=== PATIENT | female | born 1950 | race Caucasian/White ===

== ENCOUNTER 2017-06-17 19:43 | Emergency (ER) | payer MEDICARE, OTHER ==
[2017-06-17 19:52] VITALS: BP 175/86
--- NOTE | 2017-06-17 21:07 | EDM.PDOC ---
ED HPI GENERAL MEDICAL PROBLEM - General Chief Complaint: Chest Pain Stated Complaint: CHEST PAIN/COUGH/BODY ACHES/HEADACHES Time Seen by Provider: 06/17/17 19:49 Source of Information: Reports: Patient, RN Notes Reviewed - History of Present Illness INITIAL COMMENTS - FREE TEXT/NARRATIVE: 66-year-old lady started with cough congestion sore throat about 2-1/2 days ago. That has been worsening yesterday, today and especially this evening. Her cough is harsh frequent from her chest and nonproductive. Does have nasal congestion and drainage which is clear. Her throat is sore. She now does have fever chills headache muscle aching. Her became ill with these symptoms about 6 days ago was seen in the ED about 3 or 4 days ago. Of note His influenza screen was negative. Chest Pain Score (Numeric/FACES): 5 - Related Data Allergies Allergy/AdvReac Type Severity Reaction Status Date / Time adhesive Allergy Rash Verified 08/18/15 14:42 bandaids Allergy Rash Uncoded 08/18/15 14:42 Home Meds: Home Meds Furosemide [Lasix] 40 mg PO DAILY 06/06/14 [History] Quinapril [Accupril] 20 mg PO DAILY 06/06/14 [History] Ranitidine HCl [Ranitidine] 150 mg PO BID 06/06/14 [History] Venlafaxine HCl [Venlafaxine ER] 37.5 mg PO BID 06/06/14 [History] atorvaSTATin [Lipitor] 40 mg PO BEDTIME 06/06/14 [History] Aspirin [Lan Chewable Aspirin] 81 mg PO BEDTIME 12/30/14 [History] Levothyroxine [Synthroid] 100 mcg PO DAILY 12/30/14 [History] Potassium Gluconate 2.5 meq PO BID 12/30/14 [History] DULoxetine [Cymbalta] 60 mg PO DAILY cap 01/04/15 [Rx] Past Medical History HEENT History: Reports: Cataract, Impaired Vision Other HEENT History: wears eyeglasses Cardiovascular History: Reports: High Cholesterol, Hypertension, [place], Stents Gastrointestinal History: Reports: GERD Other Genitourinary History: only 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: Psychiatric History: Reports: Anxiety, Depression Endocrine/Metabolic History: Reports: Other (See Below) Other Endocrine/Metabolic History: has thyroid "burned." - Infectious Disease History Infectious Disease History: Reports: Chicken Pox, Measles, Mumps - Past Surgical History GI Surgical History: Reports: Appendectomy, Cholecystectomy Musculoskeletal Surgical History: Reports: Knee Replacement Social & Family History - Family History Family Medical History: Noncontributory - Tobacco Use Smoking Status *Q: Never Smoker Years of Tobacco use: 12 Used Tobacco, but Quit: Yes Month Tobacco Last Used: 15 yrs ago Second Hand Smoke Exposure: No - Caffeine Use Caffeine Use: Reports: Coffee - Alcohol Use Days Per Week of Alcohol Use: 0 - Recreational Drug Use Recreational Drug Use: No Drug Use in Last 12 Months: No ED ROS GENERAL - Review of Systems Review Of Systems: See Below Constitutional: Reports: Fever, Chills HEENT: Reports: Rhinitis, Sinus Problem, Throat Pain Respiratory: Reports: Shortness of Breath (With coughing), Cough Cardiovascular: Reports: Chest Pain Endocrine: Reports: Fatigue (With coughing) GI/Abdominal: Reports: Decreased Appetite. Denies: Abdominal Pain, Nausea, Vomiting Skin: Reports: No Symptoms Neurological: Reports: Dizziness, Headache, Weakness (Generalized). Denies: Numbness, Tingling, Trouble Speaking, Difficulty Walking ED EXAM, GENERAL - Physical Exam Exam: See Below General Appearance: Alert, Mild Distress Eye Exam: Bilateral Eye: PERRL Throat/Mouth: Normal Inspection, Normal Oropharynx Head: Atraumatic. No: Facial Swelling Neck: Supple, Full Range of Motion. No: Lymphadenopathy (L), Lymphadenopathy (R ) Respiratory/Chest: No Respiratory Distress, Lungs Clear, Normal Breath Sounds. No: Rhonchi, Wheezing Cardiovascular: Regular Rate, Rhythm GI/Abdominal: Non-Tender Back Exam: Normal Inspection Extremities: Normal Inspection, Normal Range of Motion. No: Pedal Edema, Leg Pain Neurological: Alert, Oriented, No Motor/Sensory Deficits Skin Exam: Warm, Dry, Normal Color Course - Vital Signs Last Recorded V/S: Last Vital Signs Temp 98 F 06/17/17 19:48 Pulse 97 06/17/17 19:48 Resp 23 H 06/17/17 19:48 BP 175/86 H 06/17/17 19:48 Pulse Ox 96 06/17/17 19:48 - Orders/Labs/Meds Orders: Active Orders 24 hr Category Date Time Status Chest 1V Frontal [CR] Stat Exams 06/17/17 19:59 Taken Departure - Departure Time of Disposition: 21:04 Disposition: Home, Self-Care 01 Condition: Fair Clinical Impression: Influenza A Instructions: Influenza, Adult, [id number] Referrals: Estevan Rizzo MD [Primary Care Provider] - Forms: ED Department Discharge Additional Instructions: Screen did come back positive for influenza A. Rest, continue to drink plenty of water to maintain hydration. The vporizer or steam as needed. Tylenol 3-4 times daily as needed for discomfort or high fever. Symptoms should start getting better over the next 1-2 days as discussed the cough, bronchitis will likely last for another week or 2. Follow up clinic as needed, return to ED as needed if symptoms worsening in any way. - My Orders Last 24 Hours: My Active Orders 06/17/17 19:59 Chest 1V Frontal [CR] Stat - Assessment/Plan Last 24 Hours: My Active Orders 06/17/17 19:59 Chest 1V Frontal [CR] Stat
--- NOTE | 2017-06-18 06:36 | CR ---
Chest: Portable view of the chest was obtained. Comparison: Prior chest x-ray of 08/18/15 Heart size and mediastinum are normal. Lungs are clear. Bony structures are grossly intact. Impression: 1. Nothing acute is identified on portable chest x-ray. Diagnostic code #1
== END 2017-06-17 21:17 | disposition home or self-care (01) ==
LOC: JD.ED 19:43
DX: J10.1 Influenza due to other identified influenza virus with other respiratory manifestations (principal); I10 Essential (primary) hypertension; E78.00 Pure hypercholesterolemia, unspecified; F32.9 Major depressive disorder, single episode, unspecified; Z87.891 Personal history of nicotine dependence; Z91.09 Other allergy status, other than to drugs and biological substances; Z79.899 Other long term (current) drug therapy; Z79.82 Long term (current) use of aspirin
CPT/HCPCS: 71045; 71045-26; 87804; 99282; 99284

== ENCOUNTER 2019-12-22 19:43 | Emergency (ER) | payer MEDICARE, OTHER ==
[2019-12-22 20:00] VITALS: BP 176/72; PULSE 81
[2019-12-22] MEDS ORDERED: Sodium Chloride 0.9% 10 ML Syringe FLUSH PRN (20:14)
[2019-12-22] MEDS ORDERED: Aspirin 81 MG Tab.Chew PO ONE (20:15)
--- NOTE | 2019-12-22 20:20 | EDM.PDOC ---
ED HPI GENERAL MEDICAL PROBLEM - General Chief Complaint: Chest Pain Stated Complaint: CHEST PAIN Time Seen by Provider: 12/22/19 20:02 Source of Information: Reports: Patient, RN Notes Reviewed - History of Present Illness INITIAL COMMENTS - FREE TEXT/NARRATIVE: 69 yr old female with chest pain yesterday and today. It is sharp, does not radiate but also not going away. She does have hx of CAD with 5 stents. No cough, fever or chills. She does get short of breath at times but no worse than usual. Her chest does not feel heavy or tight like it did with her previous CO about 20 yrs ago. No abd pain, nausea or vomiting. Left Upper Chest Pain Score (Numeric/FACES): 6 - Related Data Allergies Allergy/AdvReac Type Severity Reaction Status Date / Time adhesive Allergy Rash Verified 12/22/19 20:00 bandaids Allergy Rash Uncoded 08/18/15 14:42 Home Meds: Home Meds Furosemide [Lasix] 40 mg PO DAILY 06/06/14 [History] Quinapril [Accupril] 20 mg PO DAILY 06/06/14 [History] Venlafaxine HCl [Venlafaxine ER] 37.5 mg PO TID 06/06/14 [History] atorvaSTATin [Lipitor] 40 mg PO BEDTIME 06/06/14 [History] Aspirin [Lan Chewable Aspirin] 81 mg PO BEDTIME 12/30/14 [History] Levothyroxine [Synthroid] 100 mcg PO DAILY 12/30/14 [History] Potassium Gluconate 2.5 meq PO BID 12/30/14 [History] Past Medical History HEENT History: Reports: Cataract, Impaired Vision Other HEENT History: wears eyeglasses Cardiovascular History: Reports: High Cholesterol, Hypertension, [place], Stents Gastrointestinal History: Reports: GERD Other Genitourinary History: 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: Psychiatric History: Reports: Anxiety, Depression Endocrine/Metabolic History: Reports: Other (See Below) Other Endocrine/Metabolic History: has thyroid "burned." - Infectious Disease History Infectious Disease History: Reports: Chicken Pox, Measles, Mumps - Past Surgical History GI Surgical History: Reports: Appendectomy, Cholecystectomy Musculoskeletal Surgical History: Reports: Knee Replacement Social & Family History - Family History Family Medical History: Noncontributory - Tobacco Use Smoking Status *Q: Former Smoker Used Tobacco, but Quit: Yes Month/Year Tobacco Last Used: 2002 - Caffeine Use Caffeine Use: Reports: Coffee - Recreational Drug Use Recreational Drug Use: No ED ROS GENERAL - Review of Systems Review Of Systems: See Below Constitutional: Denies: Fever, Chills, Diaphoresis HEENT: Denies: Sinus Problem, Throat Pain Respiratory: Reports: Shortness of Breath. Denies: Cough Cardiovascular: Reports: Chest Pain GI/Abdominal: Denies: Abdominal Pain, Nausea, Vomiting Musculoskeletal: Denies: Shoulder Pain, Arm Pain, Back Pain Skin: Reports: No Symptoms Neurological: Reports: No Symptoms ED EXAM, GENERAL - Physical Exam Exam: See Below General Appearance: Alert, No Apparent Distress Eye Exam: Bilateral Eye: PERRL Throat/Mouth: Normal Inspection Head: Atraumatic Neck: Supple Respiratory/Chest: No Respiratory Distress, Lungs Clear, Normal Breath Sounds, Other (very mild tenderness L sternal border) Cardiovascular: Regular Rate, Rhythm GI/Abdominal: Soft, Non-Tender. No: Guarding Extremities: Normal Inspection. No: Pedal Edema, Leg Pain, Increased Warmth, Redness Neurological: Alert, Oriented, No Motor/Sensory Deficits Skin Exam: Warm, Dry, Normal Color, No Rash EKG INTERPRETATION EKG Date: 12/22/19 Rhythm: NSR Hinkle: Normal P-Wave: Present QRS: Other (q waves inf. and ant. leads) ST-T: Depressed (very slight st depression V5 and V6) Course - Vital Signs Last Recorded V/S: Last Vital Signs Temp 97.6 F 12/22/19 19:54 Pulse 81 12/22/19 19:54 Resp 22 H 12/22/19 19:54 BP 176/72 H 12/22/19 19:54 Pulse Ox 98 12/22/19 19:54 - Orders/Labs/Meds Orders: Active Orders 24 hr Category Date Time Status Peripheral IV Insertion Adult [OM.PC] Stat Oth 12/22/19 20:15 Ordered Labs: Laboratory Tests 12/22/19 12/22/19 Range/Units 19:55 19:55 WBC 10.84 H (3.98-10.04) K/mm3 RBC 4.50 (3.98-5.22) M/mm3 Hgb 13.9 (11.2-15.7) gm/dl Hct 43.3 (34.1-44.9) % MCV 96.2 H D (79.4-94.8) fl MCH 30.9 (25.6-32.2) pg MCHC 32.1 L (32.2-35.5) g/dl RDW Std Deviation 48.6 H (36.4-46.3) fL Plt Count 259 (182-369) K/mm3 MPV 10.9 (9.4-12.3) fl Neut % (Auto) 57.2 (34.0-71.1) % Lymph % (Auto) 35.0 (19.3-51.7) % [place] % (Auto) 7.2 (4.7-12.5) % Eos % (Auto) 0.1 L (0.7-5.8) Baso % (Auto) 0.3 (0.1-1.2) % Neut # (Auto) 6.21 H (1.56-6.13) K/mm3 Lymph # (Auto) 3.79 H (1.18-3.74) K/mm3 [place] # (Auto) 0.78 H (0.24-0.36) K/mm3 Eos # (Auto) 0.01 L (0.04-0.36) K/mm3 Baso # (Auto) 0.03 (0.01-0.08) K/mm3 Manual Slide Review Normal smear Sodium 141 (136-145) mEq/L Potassium 3.7 (3.5-5.1) mEq/L Chloride 103 (98-107) mEq/L Carbon Dioxide 29 (21-32) mEq/L Anion Gap 12.7 (5-15) BUN 16 (7-18) mg/dL Creatinine 1.4 H (0.55-1.02) mg/dL Est Cr Clr Drug Dosing 34.81 mL/min Estimated GFR (MDRD) 37 (>60) mL/min BUN/Creatinine Ratio 11.4 L (14-18) Glucose 91 (80-115) mg/dL Calcium 8.9 (8.5-10.1) mg/dL Total Bilirubin 0.4 (0.2-1.0) mg/dL AST 16 (15-37) U/L ALT 31 (14-59) U/L Alkaline Phosphatase 106 (46-116) U/L Troponin I < 0.017 (0.00-0.056) ng/mL Total Protein 7.8 (6.4-8.2) g/dl Albumin 3.5 (3.4-5.0) g/dl Globulin 4.3 gm/dL Albumin/Globulin Ratio 0.8 L (1-2) Meds: Medications Discontinued Medications Generic Name Dose Route Start Last Admin Trade Name Jose PRN Reason Stop Dose Admin Aspirin 324 mg 12/22/19 20:15 12/22/19 20:24 Aspirin PO 12/22/19 20:16 324 mg ONETIME ONE Administration Sodium Chloride 10 ml 12/22/19 20:14 12/22/19 20:17 Saline Flush FLUSH 10 ml ASDIRECTED PRN Administration Keep Vein Open - Re-Assessments/Exams Free Text/Narrative Re-Assessment/Exam: 12/22/19 21:58 trop neg., CXR no acute findings. She has been doing some heavier lifting than usual this past week. I did offer a repeat trop but they are comfortable with what we have done. Discharge instr. as documented. Departure - Departure Time of Disposition: 21:16 Disposition: Home, Self-Care 01 Condition: Fair Clinical Impression: Atypical chest pain Instructions: Nonspecific Chest Pain, Adult Referrals: Estevan Rizzo MD [Primary Care Provider] - Forms: ED Department Discharge Additional Instructions: rest, avoid heavy lifting the remainder of this week. Alternate ice and heat as needed. Tylenol q 6 to 8 hr as needed. Continue current meds. Return to ED as needed if symptoms worsening in any way. Sepsis Event Note (ED) - Evaluation Sepsis Screening Result: No Definite Risk - Focused Exam Vital Signs: Vital Signs Temp Pulse Resp BP Pulse Ox 12/22/19 19:54 97.6 F 81 22 H 176/72 H 98 - My Orders Last 24 Hours: My Active Orders 12/22/19 20:15 Peripheral IV Insertion Adult [OM.PC] Stat - Assessment/Plan Last 24 Hours: My Active Orders 12/22/19 20:15 Peripheral IV Insertion Adult [OM.PC] Stat
--- NOTE | 2019-12-22 21:06 | CR ---
Chest: Portable view of the chest was obtained. Comparison: Prior chest x-ray of 06/17/17. Heart size and mediastinum are within normal limits for portable technique. Lungs show no acute parenchymal change. Bony structures are grossly intact. Impression: 1. Nothing acute is identified on portable chest x-ray. Diagnostic code #1 This report was dictated in MDT
== END 2019-12-22 21:22 | disposition home or self-care (01) ==
LOC: JD.ED 19:43
DX: R07.89 Other chest pain (principal); I25.2 Old myocardial infarction; I10 Essential (primary) hypertension; E78.00 Pure hypercholesterolemia, unspecified; Z95.5 Presence of coronary angioplasty implant and graft; F41.9 Anxiety disorder, unspecified; F32.9 Major depressive disorder, single episode, unspecified; Z90.49 Acquired absence of other specified parts of digestive tract; Z98.890 Other specified postprocedural states; Z87.891 Personal history of nicotine dependence; Z91.09 Other allergy status, other than to drugs and biological substances; Z79.899 Other long term (current) drug therapy; Z79.82 Long term (current) use of aspirin
CPT/HCPCS: 36415; 71045; 80053; 84484; 85025; 93005; 99285; A9270; 93010; 99283

== ENCOUNTER 2023-03-01 18:42 | Emergency (ER) | payer MEDICARE, OTHER ==
[2023-03-01] MEDS ORDERED: Acetaminophen/HYDROcodone 325-5 MG Tab PO ONE (22:43)
[2023-03-01 23:50] VITALS: BP 154/74; PULSE 59
== END 2023-03-01 23:45 | disposition home or self-care (01) ==
LOC: JD.ED 18:42
DX: S92.211A Displaced fracture of cuboid bone of right foot, initial encounter for closed fracture (principal); E78.00 Pure hypercholesterolemia, unspecified; K21.9 Gastro-esophageal reflux disease without esophagitis; I10 Essential (primary) hypertension; I25.2 Old myocardial infarction; Z79.82 Long term (current) use of aspirin; Z79.899 Other long term (current) drug therapy; Z91.048 Other nonmedicinal substance allergy status; W17.89XA Other fall from one level to another, initial encounter
CPT/HCPCS: 70450; 72125; 72128; 73610; 73630; 99284; A9270; 99283

== ENCOUNTER 2024-12-15 22:37 | Inpatient (IN) | payer MEDICARE, OTHER ==
[2024-12-15 23:09] LABS: MEAN PLATELET VOLUME 10.4 fl (9.4-12.3); NRBC ABSOLUTE 0.00 (0.00-0.02); NRBC PERCENT 0.0 % (0.0-0.2); PLATELET COUNT,PLT 143 K/mm3 (150-400); RED BLOOD CELL COUNT 3.93 M/mm3 (4.10-5.30); WHITE BLOOD CELL COUNT,WBC 6.42 K/mm3 (3.9-11.3)
[2024-12-15 23:34] LABS: INR 1.03
[2024-12-15 23:41] LABS: LACTIC ACID 1.4 mmol/L (0.4-2.0)
[2024-12-15] MEDS: Sodium Chloride 0.9% 10 ML Syringe FLUSH PRN (23:44)
[2024-12-15] MEDS: Lactated Ringers 1,000 ML IV SCH (23:44)
[2024-12-15 23:49] LABS: A/G RATIO 0.6 (1-2); ALANINE AMINOTRANSFERASE,ALT 27 U/L (14-59); ASPARTATE AMNIOTRANSFERASE,AST 31 U/L (15-37); BILIRUBIN TOTAL 1.1 mg/dL (0.2-1.0); BLOOD UREA NITROGEN,BUN 16 mg/dL (7-18); CARBON DIOXIDE,CO2 30 mEq/L (21-32); CHLORIDE,CL 97 mEq/L (98-107); CREATININE 1.8 mg/dL (0.55-1.02); ESTIMATED GFR 29 mL/min (>60); GLUCOSE RANDOM 137 mg/dL (70-99); POTASSIUM,K 4.2 mEq/L (3.5-5.1); PROTEIN TOTAL,TP 7.5 g/dl (6.4-8.2); SODIUM,NA 134 mEq/L (136-145); TROPONIN I HIGH SENSITIVITY 14 pg/mL (<=51)
[2024-12-15 23:54] LABS: BAND PERCENT MAN 1 % (0-10); BASOPHILS PERCENT MAN 0 (0.1-1.2); EOSINOPHILS PERCENT MAN 0 % (0.7-5.8); LYMPHOCYTES % ATYPICAL MANUAL 0 %; LYMPHOCYTES PERCENT MAN 16 % (20-40); MONOCYTES PERCENT MAN 3 % (2-10)
[2024-12-15 23:55] LABS: PLATELET COUNT ESTIMATE ADEQUATE
[2024-12-16 02:40] LABS: APPEARANCE,URINE CLEAR (Clear); GLUCOSE,URINE NEGATIVE (Negative); OCCULT BLOOD,URINE 1+ (Negative)
[2024-12-16 02:50] LABS: EPITHELIAL CELLS,URINE 0-5 /hpf (0-5)
[2024-12-16] MEDS ORDERED: Ondansetron 4 MG/2 ML SDV IVPUSH PRN (04:22)
[2024-12-16] MEDS ORDERED: Acetaminophen/HYDROcodone 325-5 MG Tab PO PRN (08:30)
[2024-12-16 08:31] LABS: BASOPHILS ABSOLUTE AUTO 0.0 K/mm3 (0.0-0.2); BASOPHILS PERCENT AUTO 0.6 % (0.0-1.0); EOSINOPHILS ABSOLUTE AUTO 0.0 K/mm3 (0.0-0.4); EOSINOPHILS PERCENT AUTO 0.0 % (0.0-6.0); IMMATURE GRAN ABSOLUTE AUTO 0.01 K/mm3 (0.00-0.05); IMMATURE GRAN PERCENT AUTO 0.2 % (0.0-0.4); LYMPHOCYTES ABSOLUTE AUTO 1.7 K/mm3 (1.0-4.8); LYMPHOCYTES PERCENT AUTO 31.8 % (24.0-44.0); MEAN PLATELET VOLUME 10.4 fl (9.4-12.3); MONOCYTES ABSOLUTE AUTO 0.5 K/mm3 (0.0-0.8); MONOCYTES PERCENT AUTO 9.5 % (0.0-8.0); NEUTROPHILS ABSOLUTE AUTO 3.1 K/mm3 (1.8-7.7); NEUTROPHILS PERCENT AUTO 57.9 % (41.0-71.0); NRBC ABSOLUTE 0.00 (0.00-0.02); NRBC PERCENT 0.0 % (0.0-0.2); PLATELET COUNT,PLT 127 K/mm3 (150-400); RED BLOOD CELL COUNT 3.56 M/mm3 (4.10-5.30); WHITE BLOOD CELL COUNT,WBC 5.35 K/mm3 (3.9-11.3)
[2024-12-16 08:55] LABS: BLOOD UREA NITROGEN,BUN 14.0 mg/dL (7-18); CARBON DIOXIDE,CO2 29.0 mEq/L (21-32); CHLORIDE,CL 100.0 mEq/L (98-107); CREATININE 1.6 mg/dL (0.55-1.02); EST CRCL DRUG DOSING (CG) 27.76 mL/min; ESTIMATED GFR 34.0 mL/min (>60); GLUCOSE RANDOM 145.0 mg/dL (70-99); POTASSIUM,K 3.5 mEq/L (3.5-5.1); SODIUM,NA 136.0 mEq/L (136-145)
[2024-12-16] MEDS: Heparin Sodium 5,000 Units/ML Vial SUBCUT SCH (08:55)
[2024-12-16 09:13] LABS: PHOSPHORUS 2.8 mg/dL (2.6-4.7)
[2024-12-16 09:44] LABS: TSH 0.962 uIU/mL (0.358-3.74); VITAMIN D,25-HYDROXY 19.1 ng/ml (30.0-100.0)
[2024-12-16] MEDS: Magnesium Sulfat/D5W 1GM/100ML 1 GM in Premix Bag 1 BAG IV ONE (10:59)
[2024-12-16] MEDS ORDERED: Potassium Phosphates 30 MMOLE in Sodium Chloride 0.9% 500 ML IV ONE (11:00)
[2024-12-16 11:14] LABS: APPEARANCE,URINE CLEAR (Clear); GLUCOSE,URINE NEGATIVE (Negative); OCCULT BLOOD,URINE TRACE-INTACT (Negative)
[2024-12-16 11:25] LABS: EPITHELIAL CELLS,URINE 0-5 /hpf (0-5)
[2024-12-16] MEDS: Potassium Phosphates 30 MMOLE in Sodium Chloride 0.9% 500 ML IV ONE (16:14)
[2024-12-16] MEDS: Cholecalciferol (Vitamin D3) 5,000 UNIT Cap PO SCH (16:17)
[2024-12-16] MEDS ORDERED: Sennosides/Docusate Sodium 50-8.6 MG Tab PO PRN (21:00)
[2024-12-16] MEDS ORDERED: Naloxone 0.4 MG/ML SDV IVPUSH PRN (21:10)
[2024-12-17 04:56] LABS: BLOOD UREA NITROGEN,BUN 15.0 mg/dL (7-18); CARBON DIOXIDE,CO2 28.0 mEq/L (21-32); CHLORIDE,CL 106.0 mEq/L (98-107); CREATININE 1.3 mg/dL (0.55-1.02); EST CRCL DRUG DOSING (CG) 34.16 mL/min; ESTIMATED GFR 43.0 mL/min (>60); GLUCOSE RANDOM 172.0 mg/dL (70-99); PHOSPHORUS 3.0 mg/dL (2.6-4.7); POTASSIUM,K 4.4 mEq/L (3.5-5.1); SODIUM,NA 140.0 mEq/L (136-145)
[2024-12-17] MEDS: DESVENLAFAXINE SUCCINATE PO SCH (17:42)
[2024-12-19 05:51] LABS: BASOPHILS ABSOLUTE AUTO 0.0 K/mm3 (0.0-0.2); BASOPHILS PERCENT AUTO 0.1 % (0.0-1.0); EOSINOPHILS ABSOLUTE AUTO 0.0 K/mm3 (0.0-0.4); EOSINOPHILS PERCENT AUTO 0.0 % (0.0-6.0); IMMATURE GRAN ABSOLUTE AUTO 0.08 K/mm3 (0.00-0.05); IMMATURE GRAN PERCENT AUTO 0.9 % (0.0-0.4); LYMPHOCYTES ABSOLUTE AUTO 1.4 K/mm3 (1.0-4.8); LYMPHOCYTES PERCENT AUTO 15.9 % (24.0-44.0); MEAN PLATELET VOLUME 11.4 fl (9.4-12.3); MONOCYTES ABSOLUTE AUTO 0.3 K/mm3 (0.0-0.8); MONOCYTES PERCENT AUTO 3.3 % (0.0-8.0); NEUTROPHILS ABSOLUTE AUTO 7.1 K/mm3 (1.8-7.7); NEUTROPHILS PERCENT AUTO 79.8 % (41.0-71.0); NRBC ABSOLUTE 0.00 (0.00-0.02); NRBC PERCENT 0.0 % (0.0-0.2); PLATELET COUNT,PLT 190 K/mm3 (150-400); RED BLOOD CELL COUNT 3.94 M/mm3 (4.10-5.30); WHITE BLOOD CELL COUNT,WBC 8.89 K/mm3 (3.9-11.3)
[2024-12-19 06:09] LABS: BLOOD UREA NITROGEN,BUN 22.0 mg/dL (7-18); CARBON DIOXIDE,CO2 27.0 mEq/L (21-32); CHLORIDE,CL 105.0 mEq/L (98-107); CREATININE 1.3 mg/dL (0.55-1.02); EST CRCL DRUG DOSING (CG) 34.16 mL/min; ESTIMATED GFR 43.0 mL/min (>60); GLUCOSE RANDOM 208.0 mg/dL (70-99); SODIUM,NA 139.0 mEq/L (136-145)
[2024-12-19 06:27] LABS: POTASSIUM,K 4.0 mEq/L (3.5-5.1)
[2024-12-19] MEDS: Dexamethasone 4 MG/ML 5 ML MDV IV SCH (09:23)
[2024-12-19] MEDS: Benzocaine/Cetylpyridinium/Menthol Lozenge MUCMEM PRN (11:59)
[2024-12-19] MEDS ORDERED: Labetalol 100 MG/20 ML MDV IVPUSH PRN (13:30)
[2024-12-19] MEDS ORDERED: hydrALAZINE 20 MG/ML SDV IVPUSH PRN (13:30)
[2024-12-20 08:31] VITALS: BP 129/81
[2024-12-20 14:13] VITALS: PULSE 56
[2024-12-21] MEDS ORDERED: Dexamethasone 10 MG/ML SDV IV SCH (09:00)
== END 2024-12-20 15:10 | disposition home or self-care (01) | DRG 177 ==
LOC: JD.ED 22:37 → JD.MS 12-16 03:18
PROVIDERS: ADMIT Student in an Organized Health Care Education/Training Program; ATTEND Student in an Organized Health Care Education/Training Program
PROC: XW033E5 Introduction of Remdesivir Anti-infective into Peripheral Vein, Percutaneous Approach, New Technology Group 5 (ICD-10-PCS; principal; 2024-12-16)
DX: U07.1 COVID-19 (principal); N28.9 Disorder of kidney and ureter, unspecified; N30.00 Acute cystitis without hematuria; J12.82 Pneumonia due to coronavirus disease 2019; I10 Essential (primary) hypertension; J96.01 Acute respiratory failure with hypoxia; N39.0 Urinary tract infection, site not specified; N17.9 Acute kidney failure, unspecified; R55 Syncope and collapse; Z91.048 Other nonmedicinal substance allergy status; H26.9 Unspecified cataract; H54.7 Unspecified visual loss; E78.00 Pure hypercholesterolemia, unspecified; I25.2 Old myocardial infarction; K21.9 Gastro-esophageal reflux disease without esophagitis; F41.9 Anxiety disorder, unspecified; F32.A Depression, unspecified; E86.0 Dehydration; I44.7 Left bundle-branch block, unspecified; E03.9 Hypothyroidism, unspecified; R73.03 Prediabetes; I25.10 Atherosclerotic heart disease of native coronary artery without angina pectoris; E55.9 Vitamin D deficiency, unspecified; I12.9 Hypertensive chronic kidney disease with stage 1 through stage 4 chronic kidney disease, or unspecified chronic kidney disease; N18.9 Chronic kidney disease, unspecified; Z88.8 Allergy status to other drugs, medicaments and biological substances; Z79.899 Other long term (current) drug therapy; Z79.82 Long term (current) use of aspirin; Z90.49 Acquired absence of other specified parts of digestive tract; Z96.659 Presence of unspecified artificial knee joint; Z95.5 Presence of coronary angioplasty implant and graft
CPT/HCPCS: 36415; 71045; 80053; 81001; 83605; 84484; 85007; 85027; 85610; 86140; 87040 ×2; 87426; 87651; 93005; 94640; 96361; 96374; 99285; A9270; J2543; J7030; J7120; 80048; 82306; 83036; 83735; 84100; 84443; 85025; 87086; 93010; 93306; 93880; 93880-26; 94667; 94668; 94761; 97110-GP; 97112-GP; 97116-GP; 97162-GP; 97530-GP; J0248; J0696; J1100; J1644; J1650; J3475; J3490; J7040; J7050; J8540